=== PATIENT | male | born 1995 | race Caucasian/White ===

== ENCOUNTER 2019-12-01 19:35 | Emergency (ER) | payer OTHER ==
--- NOTE | 2019-12-01 20:09 | ER Document Report ---
ED Medical Screen (RME) - General Chief Complaint: Chest Pain Stated Complaint: ANXIETY Time Seen by Provider: 12/01/19 20:07 Mode of Arrival: Ambulatory Information source: Patient Notes: 24-year-old male presented to ED for complaint of chest pain that started on Monday. He states at that time he had palpitations and he felt like he had to take a real deep deep breaths. Since he had this chest pain on Monday he has been very anxious. He states he went to the [facility] ED yesterday and they told him to just go home and wait to talk to his primary care doctor. He states he had chest pain again several times today he had a 20 minutes ago it was very sharp he became very anxious so he came to the hospital to have somebody to check him out to find out why he is having this chest pain. He states he is never had anxiety in the past and he does not know why he is having this chest pain and is anxious that he will continue to have pain. He is alert oriented respirations regular and unlabored speaking in full sentences. Patient is very anxious at this time. - Related Data Allergies/Adverse Reactions: No Known Allergies Allergy (Unverified 12/01/19 20:01) Physical Exam - Vital signs Vitals: Temp Pulse Resp BP Pulse Ox 97.9 F 51 L 13 141/87 H 100 12/01/19 19:55 12/01/19 19:55 12/01/19 19:55 12/01/19 19:55 12/01/19 19:55 Course - Vital Signs Vital signs: Temp Pulse Resp BP Pulse Ox 97.9 F 51 L 13 141/87 H 100 12/01/19 19:55 12/01/19 19:55 12/01/19 19:55 12/01/19 19:55 12/01/19 19:55
[2019-12-01] MEDS ORDERED: ASPIRIN 81 MG TABLET, CHEWABLE PO ONE (20:10)
--- NOTE | 2019-12-01 20:41 | ER Document Report ---
ED Cardiac - General Mode of Arrival: Ambulatory Information source: Patient TRAVEL OUTSIDE OF THE [place] IN LAST 30 DAYS: No <ASHVIN DONNELLY - Last Filed: 12/02/19 00:09> <CHIRAGJANICEASHLEYYO - Last Filed: 12/02/19 01:10> - General Chief Complaint: Chest Pain Stated Complaint: ANXIETY Time Seen by Provider: 12/01/19 20:07 Notes: 24 y/o male with past medical history significant for panic attack presents to the emergency room complaining of intermittent diffuse chest pressure with palpitations for 2 days, Denies any trauma symptoms go away after he relaxes. Is in the and states he went to [place] [facility] room yesterday and states they did an EKG and discharged him home telling him to follow up with his primary care provider on Monday. Denies any new stress no medications for symptoms. Family history significant for CAD and OK. Denies any shortness of breath, no difficulty breathing, no recent travel. (ASHVIN DONNELLY) - Related Data Allergies/Adverse Reactions: No Known Allergies Allergy (Unverified 12/01/19 20:01) Past Medical History - General Information source: Patient - Social History Smoking Status: Former Smoker Frequency of alcohol use: Occasional Drug Abuse: None Family History: CAD - Dad and grandfather, both with OK in their 40's Patient has suicidal ideation: No Patient has homicidal ideation: No Psychiatric Medical History: Reports: Other - panic attacks Past Surgical History: Reports: Hx Oral Surgery <ASHVIN DONNELLY - Last Filed: 12/02/19 00:09> Review of Systems - Review of Systems Constitutional: No symptoms reported Cardiovascular: Chest pain, Palpitations Respiratory: No symptoms reported Gastrointestinal: No symptoms reported Hematologic/Lymphatic: No symptoms reported Neurological/Psychological: Other - panic attacks -: Yes All other systems reviewed and negative <ASHVIN DONNELLY - Last Filed: 12/02/19 00:09> Physical Exam - General General appearance: Appears well, Alert In distress: Mild - HEENT Head: Normocephalic, Atraumatic Eyes: Normal Pupils: PERRL - Respiratory Respiratory status: No respiratory distress Chest status: Nontender Breath sounds: Normal Chest palpation: Normal - Cardiovascular Rhythm: Bradycardia Heart sounds: Normal auscultation Murmur: No Friction rub: No Gallop: None auscultated - Neurological Neuro grossly intact: Yes Cognition: Normal Orientation: AAOx4 [place] Coma Scale Eye Opening: Spontaneous Comfort Coma Scale Verbal: Oriented [place] Coma Scale Motor: Obeys Commands Comfort Coma Scale Total: 15 Speech: Normal Motor strength normal: LUE, RUE, LLE, RLE Sensory: Normal - Psychological Associated symptoms: Normal affect, Normal mood - Skin Skin Temperature: Warm Skin Moisture: Dry Skin Color: Normal <ASHVIN DONNELLY - Last Filed: 12/02/19 00:09> - Vital signs Vitals: Temp Pulse Resp BP Pulse Ox 97.9 F 51 L 13 141/87 H 100 12/01/19 19:55 12/01/19 19:55 12/01/19 19:55 12/01/19 19:55 12/01/19 19:55 Course - Laboratory Result Diagrams: 12/01/19 20:52 12/01/19 20:52 - Diagnostic Test Radiology reviewed: Reports reviewed - EKG Interpretation by Me EKG shows normal: Sinus rhythm Rate: Normal <ASHVIN DONNELLY - Last Filed: 12/02/19 00:09> - Laboratory Result Diagrams: 12/01/19 20:52 12/01/19 20:52 <YO SHARP - Last Filed: 12/02/19 01:10> - Re-evaluation Re-evalutation: 12/01/19 2030 Heart score = 1 12/01/19 22:36 Patient resting comfortably remains pain free, reviewed lab, xray and ekg results with patient. Aware waiting for repeat Troponin at 2300. 12/01/19 22:37 12/01/19 22:38 12/02/19 00:10 Patient signed out to Yo BECKHAM Discussed all labs, ekg, chest xray and pending labs. (ASHVIN DONNELLY) - Vital Signs Vital signs: Temp Pulse Resp BP Pulse Ox 97.9 F 51 L 19 128/67 H 99 12/01/19 20:01 12/01/19 19:55 12/02/19 00:01 12/02/19 00:01 12/01/19 21:09 - Laboratory Laboratory results interpreted by me: 12/01/19 12/01/19 20:52 23:49 Seg Neutrophils % 39.9 L Urine Protein 30 H - EKG Interpretation by Me Additional EKG results interpreted by me: 12/01/19 20:[address] Finnegan. No Acute STEMI (ASHVIN DONNELLY) Discharge <ASHVIN DONNELLY - Last Filed: 12/02/19 00:09> <YO SHARP - Last Filed: 12/02/19 01:10> - Discharge Clinical Impression: Anxiety Chest pain Qualifiers: Chest pain type: unspecified Qualified Code(s): R07.9 - Chest pain, unspecified Condition: Stable Disposition: HOME, SELF-CARE Instructions: Chest Pain of Unclear Cause ([facility]) Additional Instructions: Your work-up tonight does not show any concerning findings other than some dehydration. Improve your fluid intake. Follow-up with primary care tomorrow for additional evaluation management, also see cardiology referral to follow-up with. Return if you worsen including fever, difficulty breathing, severe worsening pain, passing out, or any other concerning symptoms. Forms: Return to Work Referrals: SOCRATES SALAZAR MD [ACTIVE STAFF] - Follow up as needed
--- NOTE | 2019-12-01 21:12 | RADIOLOGY REPORT (SQ) ---
EXAM DESCRIPTION: XR CHEST 2 VIEWS COMPLETED DATE/TME: 12/01/2019 20:10 CLINICAL HISTORY: 24 years Male Chest pain COMPARISON: None. FINDINGS: The cardiomediastinal silhouette appears unremarkable. No consolidating infiltrates or pleural effusions. No pneumothorax. IMPRESSION: No acute abnormality is identified.
[2019-12-01 21:14] LABS: ABSOLUTE EOSINOPHILS # (AUTO) 0.4 10^3/uL (0.0-0.6); ABSOLUTE MONOCYTES (AUTO) 0.7 10^3/uL (0.1-1.4); ABSOLUTE NEUT (AUTO) 2.7 10^3/uL (1.7-8.2); BASOPHILS % (AUTO) 0.6 % (0-2); EOSINOPHILS % (AUTO) 5.2 % (0-6); HEMATOCRIT 42.7 % (37.9-51.0); HEMOGLOBIN 14.9 g/dL (13.5-17.0); MEAN CORPUSCULAR HEMOGLOBIN 31.2 pg (27.0-33.4); MEAN CORPUSCULAR HGB CONC 34.8 g/dL (32.0-36.0); MEAN CORPUSCULAR VOLUME 90 fl (80-97); MONOCYTES % (AUTO) 10.3 % (3-13); PLATELET COUNT 219 10^3/uL (150-450); RED BLOOD COUNT 4.76 10^6/uL (4.35-5.55); RED CELL DISTRIBUTION WIDTH 12.9 % (11.5-14.0); SEGMENTED NEUTROPHILS % (AUTO) 39.9 % (42-78); TOTAL CELLS COUNTED % (AUTO) 100 %; WHITE BLOOD COUNT 6.8 10^3/uL (4.0-10.5)
[2019-12-01 21:33] LABS: ALKALINE PHOSPHATASE 78 U/L (38-126); ANION GAP 11 (5-19); ASPARTATE AMINO TRANSFERASE 27 U/L (17-59); BILIRUBIN,TOTAL 0.3 mg/dL (0.2-1.3); BLOOD UREA NITROGEN 18 mg/dL (7-20); CALCIUM 10.2 mg/dL (8.4-10.2); CARBON DIOXIDE 25 mmol/L (22-30); CHLORIDE 102 mmol/L (98-107); GLUCOSE 105 mg/dL (75-110); POTASSIUM 4.1 mmol/L (3.6-5.0); TOTAL PROTEIN 7.8 g/dL (6.3-8.2)
[2019-12-02 00:06] LABS: APPEARANCE,URINE CLOUDY; BILIRUBIN,URINE NEGATIVE (NEGATIVE); COLOR,URINE YELLOW; GLUCOSE, URINE NEGATIVE (NEGATIVE); KETONES,URINE NEGATIVE (NEGATIVE); LEUKOCYTE ESTERASE,URINE NEGATIVE (NEGATIVE); NITRITE,URINE NEGATIVE (NEGATIVE); PROTEIN,URINE 30 mg/dL (NEGATIVE); UROBILINOGEN,URINE NEGATIVE mg/dL (<2.0)
[2019-12-02 00:18] LABS: URINE AMPHETAMINES SCREEN NEGATIVE; URINE BARBITURATES SCREEN NEGATIVE; URINE BENZODIAZEPINES SCREEN NEGATIVE; URINE COCAINE SCREEN NEGATIVE; URINE MARIJUANA (THC) SCREEN NEGATIVE; URINE METHADONE SCREEN NEGATIVE; URINE PHENCYCLIDINE SCREEN NEGATIVE
[2019-12-02 01:25] VITALS: BP 145/73
--- NOTE | 2019-12-02 07:18 | EKG REPORT ---
SEVERITY:- OTHERWISE NORMAL ECG - SINUS BRADYCARDIA : Confirmed by: Tunde Malcolm MD 02-Dec-2019 07:17:45
--- NOTE | 2019-12-02 07:19 | EKG REPORT ---
SEVERITY:- NORMAL ECG - SINUS RHYTHM ST ELEV, PROBABLE NORMAL EARLY REPOL PATTERN : Confirmed by: Tunde Malcolm MD 02-Dec-2019 07:18:10
== END 2019-12-02 01:25 | disposition home or self-care (01) ==
LOC: ER 19:35
DX: F41.9 Anxiety disorder, unspecified (principal); R07.89 Other chest pain; F41.0 Panic disorder [episodic paroxysmal anxiety]; R00.2 Palpitations; Z87.891 Personal history of nicotine dependence; Z82.49 Family history of ischemic heart disease and other diseases of the circulatory system
CPT/HCPCS: 36415; 71046; 80053; 80307; 81001; 84484; 85025; 93005; 93010; 99284